=== PATIENT | male | born 1990 | race African-American/Black ===

== ENCOUNTER 2018-09-23 11:03 | Emergency (ER) | payer OTHER ==
[2018-09-23] MEDS ORDERED: BUFFERED LIDOCAINE 10 ML SYRINGE SUBQ STA (12:29)
--- NOTE | 2018-09-23 13:09 | XRAY Report ---
Reason: Pinky finger injury Procedure Date: 09/23/2018 Accession Number: [id number] / [id number] Procedure: XR - Hand 3 View RT CPT Code: FULL RESULT: EXAM: RIGHT HAND RADIOGRAPHY EXAM DATE: 09/23/2018 11:29 AM. CLINICAL HISTORY: Injury COMPARISON: None. TECHNIQUE: 3 views. FINDINGS: Bones: No fracture. No bone lesion. Joints: Normal. No subluxations. Soft Tissues: Fifth digit bandage IMPRESSION: No fracture or dislocation RADIA
--- NOTE | 2018-09-23 13:29 | ED Physician Documentation ---
PD HPI UPPER EXT INJURY - Stated complaint Stated Complaint: INJURED RIGHT PINKY - Chief complaint Chief Complaint: Ext Problem - History obtained from History obtained from: Patient - History of Present Illness Location: Right, Finger Type of injury: Blunt / blow Where injury occurred: Work Timing - onset: Today Timing - details: Abrupt onset Severity Comments: moderate Improved by: Immobilization Worsened by: Moving Associated symptoms: Swelling, Discolored. No: Weakness, Numbness Contributing factors: No: Anticoagulated Similar symptoms before: Has not had sx before Recently seen: Not recently seen Review of Systems Constitutional: denies: Fever, Chills Eyes: denies: Discharge Ears: denies: Drainage/discharge Cardiac: denies: Chest pain / pressure GI: denies: Abdominal Pain Skin: reports: Laceration (s) Musculoskeletal: reports: Extremity pain. denies: Neck pain Neurologic: denies: Generalized weakness PD PAST MEDICAL HISTORY - Past Medical History Past Medical History: No - Past Surgical History Past Surgical History: No - Present Medications Home Medications: Ambulatory Orders Medication Instructions Recorded Confirmed Hydrocodone/Acetaminophen [[place] 1 each PO Q6HR PRN #5 tablet 09/23/18 5-325 Tablet] - Allergies Allergies/Adverse Reactions: Allergies Allergy/AdvReac Type Severity Reaction Status Date / Time No Known Drug Allergies Allergy Verified 09/23/18 11:17 - Social History Does the pt smoke?: No Smoking Status: Never smoker Does the pt drink ETOH?: No Does the pt have substance abuse?: No - Immunizations Immunizations are current?: Yes - POLST Patient has POLST: No PD ED PE NORMAL - General General: Alert and oriented X 3, No acute distress - HEENT HEENT: Atraumatic, PERRL, EOMI, Ears normal - Neuro Neuro: Alert and oriented X 3, Normal speech - Psych Psych: Normal affect PD ED PE EXPANDED - Extremities GENE UE/Hands Visual: 1 - laceration 2 - laceration (The patient has 2 very small lacerations with fat projecting through. The patient has full active range of motion of the finger. There is no evidence of a flexor tendon laceration. There is no foreign body on examination. The patient does have ecchymosis to the finger. The nail is uninjured. The patient has no tenderness in the wrist or proximal hand) Results - Vitals Vitals: Vital Signs - 24 hr 09/23/18 09/23/18 11:11 13:43 Temperature 36.4 C L 36.7 C Heart Rate 68 63 Respiratory 20 14 Rate Blood Pressure 157/82 H 142/83 H O2 Saturation 100 100 Oxygen O2 Source Room air - Rads (name of study) XR hand Radiology: Final report received, See rad report Procedures - Laceration (location) Finger right Length in cm: 1 Wound type: Linear Neurovascular status: Sensory intact, Motor intact, Vascular intact Tendon involvement: Tendon intact, Tendon Injury Anesthesia: Lidocaine 1% Wound Preparation: Betadine, Irrigated copiously NS, To the base. No: FB identified, FB removed Skin layer closure: Nylon, Interrupted, Size #-0 - enter number (4) Other: Patient tolerated well, No complications, Neurovascular intact, Dressing applied, Tetanus UTD Complexity: Simple PD MEDICAL DECISION MAKING - ED course ED course: The patient has a contusion to his finger with small lacerations which were closed. The patient has no evidence of a foreign body or tendon injury. Presently the patient appears appropriate for discharge and ongoing outpatient management. I discussed warning signs for infection and recommended returning for any worsening or any concerns Departure - Departure Disposition: 01 Home, Self Care Clinical Impression: Contusion of little finger Qualifiers: Encounter type: initial encounter Damage to nail status: without damage Laterality: unspecified laterality Qualified Code(s): S60.059A - Contusion of unspecified little finger without damage to nail, initial encounter Finger laceration Qualifiers: Encounter type: initial encounter Finger: little finger Damage to nail status: without damage Foreign body presence: without foreign body Laterality: unspecified laterality Qualified Code(s): S61.218A - Laceration without foreign body of other finger without damage to nail, initial encounter Condition: Good Instructions: ED Contusion Finger, ED Laceration Hand, ED Contusion Hand Follow-Up: [facility] [Provider Group] - Within 1 week (Please have your sutures removed in 7 days) Prescriptions: Hydrocodone/Acetaminophen [B[place]our 5-325 Tablet] 1 each PO Q6HR PRN #5 tablet PRN Reason: Pain Comments: Please return to the emergency department for any worsening or any concerns Discharge Date/Time: 09/23/18 13:51
[2018-09-23] MEDS ORDERED: BACITRACIN OINT TOP ONE (13:35)
[2018-09-23 13:44] VITALS: BP 142/83
== END 2018-09-23 13:51 | disposition home or self-care (01) ==
LOC: ED 11:03
DX: S61.218A Laceration without foreign body of other finger without damage to nail, initial encounter (principal); W22.8XXA Striking against or struck by other objects, initial encounter; Y99.0 Civilian activity done for income or pay
CPT/HCPCS: 12001; 73130; 99283; A9270

== ENCOUNTER 2018-12-28 22:51 | Emergency (ER) | payer OTHER ==
[2018-12-29] MEDS ORDERED: SODIUM CHLORIDE 0.9% 1,000 ML IV ONE (01:02)
[2018-12-29] MEDS ORDERED: IPRATROPIUM/ALBUTEROL 3 ML NEB INH STA (01:02)
[2018-12-29] MEDS ORDERED: KETOROLAC 30 MG/ML VIAL IVP STA (01:02)
[2018-12-29] MEDS ORDERED: DEXAMETHASONE 10 MG/ML VIAL IVP STA (01:03)
[2018-12-29] MEDS ORDERED: cefTRIAXone 1 GM in SODIUM CHLORIDE 0.9% MINIBAG 100 ML IV STA (01:03)
[2018-12-29] MEDS ORDERED: diphenhydrAMINE INJ 50 MG/ML VIAL IVP STA (01:03)
[2018-12-29] MEDS ORDERED: PROCHLORPERAZINE 10 MG/2 ML VIAL IVP STA (01:03)
--- NOTE | 2018-12-29 01:07 | ED Physician Documentation ---
PD HPI HEADACHE - Stated complaint Stated Complaint: COUGH,HEADACHE - Chief complaint Chief Complaint: Neuro - History obtained from History obtained from: Patient - History of Present Illness Timing - onset: How many days ago (2) Timing - onset during: Rest Timing - duration: Days (2) Timing - details: Abrupt onset, Still present Location: Front Quality: Throbbing Associated symptoms: Nausea. No: Fever, Stiff neck, Weakness, Numbness, Syncope, Seizure, Eye pain, Vision changes Improved by: Rest, Dark room, Quiet, Meds Worsened by: Light, Noise, Moving Contributing factors: Recent illness. No: Anticoagulated Similar symptoms before: Diagnosis (migraine) Recently seen: Not recently seen - Additional information Additional information: 28-year-old male with a history of migraine has developed a migraine headache over the past 2 days in addition of this he has developed a cough and congestion and he is coughing up yellow-green phlegm he has sinus tenderness and he has previously used an inhaler when he was younger. Review of Systems Constitutional: denies: Fever Eyes: reports: Photophobia. denies: Decreased vision Ears: denies: Ear pain Nose: reports: Rhinorrhea / runny nose, Congestion Throat: denies: Sore throat Cardiac: denies: Chest pain / pressure, Palpitations Respiratory: reports: Cough. denies: Dyspnea GI: reports: Nausea. denies: Vomiting : denies: Dysuria, Frequency PD PAST MEDICAL HISTORY - Past Medical History Past Medical History: No Cardiovascular: None Respiratory: None Neuro: None Endocrine/Autoimmune: None GI: None : None HEENT: None Psych: None Musculoskeletal: None Derm: None - Past Surgical History Past Surgical History: No - Present Medications Home Medications: Ambulatory Orders Medication Instructions Recorded Confirmed Azithromycin [Zithromax] 250 mg PO DAILY #6 tablet 12/29/18 - Allergies Allergies/Adverse Reactions: Allergies Allergy/AdvReac Type Severity Reaction Status Date / Time No Known Drug Allergies Allergy Verified 12/28/18 22:57 - Social History Does the pt smoke?: No Smoking Status: Never smoker Does the pt drink ETOH?: Yes Does the pt have substance abuse?: No - Immunizations Immunizations are current?: Yes - POLST Patient has POLST: No PD ED PE NORMAL - Vitals Vital signs reviewed: Yes - General General: Alert and oriented X 3, Well developed/nourished, Other (appears to be in pain and photophobic) - HEENT HEENT: Atraumatic, PERRL, EOMI, Other (both TM's are inflamed with indistinct landmarks. The pharynx is with circumferential erythema ) - Neck Neck: Supple, no meningeal sign, No bony TTP - Cardiac Cardiac: RRR, No murmur - Respiratory Respiratory: No respiratory distress, Other (diminsihed but clear breath sounds. 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, No motor deficit, No sensory deficit, Normal speech Eye Opening: Spontaneous Motor: Obeys Commands Verbal: Oriented GCS Score: 15 - Psych Psych: Normal mood, Normal affect Results - Vitals Vitals: Vital Signs - 24 hr 12/28/18 12/29/18 22:55 01:08 Temperature 36.9 C Heart Rate 89 72 Respiratory 16 16 Rate Blood Pressure 146/90 H O2 Saturation 97 Oxygen O2 Source Room air PD MEDICAL DECISION MAKING - ED course Complexity details: reviewed results, re-evaluated patient, considered differential, d/w patient ED course: 28-year-old male with a migraine headache and a cough appears to have sinusitis and otitis on exam and he does have some reduced airway movement. He is administered a migraine rescue consisting of Compazine, Benadryl, Toradol, Decadron and saline. In addition he is administered Rocephin IV for OM and sinusitis. We will put him on a course of antibiotic and he is given a duo neb treatment here. Departure - Departure Disposition: 01 Home, Self Care Clinical Impression: Migraine Qualifiers: Migraine type: without aura Status migrainosus presence: without status migrainosus Intractability: not intractable Qualified Code(s): G43.009 - Yasir afia without aura, not intractable, without status migrainosus Otitis media Qualifiers: Otitis media type: suppurative Chronicity: acute Laterality: bilateral Recurrence: non-recurrent Spontaneous tympanic membrane rupture: without spontaneous rupture Qualified Code(s): H66.003 - Acute suppurative otitis media without spontaneous rupture of ear drum, bilateral Condition: Stable Instructions: ED Headache Migraine, ED Otitis Media Acute Adult Follow-Up: [facility] [Provider Group] Prescriptions: Azithromycin [Zithromax] 250 mg PO DAILY #6 tablet
[2018-12-29 02:46] VITALS: BP 124/68
== END 2018-12-29 02:47 | disposition home or self-care (01) ==
LOC: ED 22:51
DX: G43.009 Migraine without aura, not intractable, without status migrainosus (principal); H66.003 Acute suppurative otitis media without spontaneous rupture of ear drum, bilateral
CPT/HCPCS: 94640; 96361; 96365; 96375; 99284; J1200

== ENCOUNTER 2019-03-31 10:49 | Emergency (ER) | payer OTHER ==
[2019-03-31] MEDS ORDERED: PROCHLORPERAZINE 10 MG/2 ML VIAL IVP STA (12:15)
[2019-03-31] MEDS ORDERED: SODIUM CHLORIDE 0.9% 1,000 ML IV ONE (12:15)
[2019-03-31] MEDS ORDERED: DEXAMETHASONE 10 MG/ML VIAL IVP STA (12:16)
[2019-03-31] MEDS ORDERED: diphenhydrAMINE INJ 50 MG/ML VIAL IVP STA (12:16)
[2019-03-31] MEDS ORDERED: KETOROLAC 30 MG/ML VIAL IVP STA (12:16)
--- NOTE | 2019-03-31 13:08 | ED Physician Documentation ---
PD HPI HEADACHE - Stated complaint Stated Complaint: PRITCHETT - Chief complaint Chief Complaint: Neuro - History obtained from History obtained from: Patient - History of Present Illness Timing - onset: How many days ago (2) Timing - duration: Days (2) Timing - details: Still present Worst headache ever?: Worst headache ever? (No) Location: Front Associated symptoms: Nausea Worsened by: Light, Noise, Moving Similar symptoms before: Diagnosis (Migraines) Recently seen: Clinic - Treatment prior to arrival Treatment prior to arrival: Naprosyn, without relief. - Additional information Additional information: The patient is a 28-year-old active [employer] [place] male who presents with "migraine headache." The pain is located mostly in the frontal region of the head. It started 2 days ago and has persisted since that time despite using Naprosyn. He reports associated photosensitivity and nausea. He denies vomiting or fever. He has history of similar symptoms in the past. The last time it was this bad was about 3 months ago. Review of Systems Constitutional: denies: Fever Eyes: reports: Photophobia Ears: denies: Tinnitus/ringing Nose: denies: Congestion Throat: denies: Sore throat Cardiac: denies: Chest pain / pressure Respiratory: denies: Dyspnea, Cough GI: reports: Nausea. denies: Abdominal Pain, Vomiting : denies: Dysuria Skin: denies: Rash Musculoskeletal: denies: Neck pain, Back pain Neurologic: reports: Headache. denies: Focal weakness, Numbness, Head injury PD PAST MEDICAL HISTORY - Past Medical History Cardiovascular: None Respiratory: None Neuro: Migraines Endocrine/Autoimmune: None GI: None : None HEENT: None Psych: None Musculoskeletal: None Derm: None - Past Surgical History Past Surgical History: No - Present Medications Home Medications: Ambulatory Orders Medication Instructions Recorded Confirmed Azithromycin [Zithromax] 250 mg PO DAILY #6 tablet 12/29/18 Promethazine [Phenergan] 25 mg PO Q6H PRN #10 tab 03/31/19 - Allergies Allergies/Adverse Reactions: Allergies Allergy/AdvReac Type Severity Reaction Status Date / Time No Known Drug Allergies Allergy Verified 03/31/19 10:59 - Social History Does the pt smoke?: No Smoking Status: Never smoker Does the pt drink ETOH?: Yes Does the pt have substance abuse?: No - Immunizations Immunizations are current?: Yes - POLST Patient has POLST: No PD ED PE NORMAL - Vitals Vital signs reviewed: Yes (Hypertensive) - General General: Alert and oriented X 3, Well developed/nourished - HEENT HEENT: Atraumatic, PERRL, EOMI, Ears normal, Pharynx benign, Other (Fundi with normal vasculature, without papilledema.) - Neck Neck: Supple, no meningeal sign, No adenopathy - Cardiac Cardiac: RRR - Respiratory Respiratory: No respiratory distress, Clear bilaterally - Abdomen Abdomen: Soft, Non tender - Back Back: No CVA TTP - Derm Derm: No rash - Extremities Extremities: No edema, No calf tenderness / cord - Neuro Neuro: Alert and oriented X 3, No motor deficit, No sensory deficit, Normal speech Results - Vitals Vitals: Oxygen O2 Source Room air PD MEDICAL DECISION MAKING - ED course Complexity details: reviewed old records, re-evaluated patient, considered differential, d/w patient ED course: The patient's presentation is most consistent with cephalgia consistent with migraine headache. His presentation does not suggest meningitis, intracranial hemorrhage, trigeminal neuralgia, or pseudotumor cerebri. Treatment in the emergency department included administration of normal saline 1P, Compazine 10 mg IV, diphenhydramine 25 mg IV, ketorolac 30 mg IV, and dexamethasone 10 mg IV. The patient's headache resolved with the above treatment. He is being discharged with prescription for Phenergan. I discussed with him symptomatic treatment, outpatient follow-up, as well as potentially worrisome signs or symptoms that should prompt reevaluation in the emergency department. Departure - Departure Disposition: 01 Home, Self Care Clinical Impression: Cephalgia Qualifiers: Headache type: unspecified Headache chronicity pattern: acute headache Intractability: not intractable Qualified Code(s): R51 - Headache Condition: Stable Instructions: ED Cephalgia Unspecified Follow-Up: [facility] [Provider Group] Prescriptions: Promethazine [Phenergan] 25 mg PO Q6H PRN #10 tab PRN Reason: Nausea / Vomiting Comments: Drink plenty of fluids. You can use ibuprofen, up to 800 mg 3 times daily if needed for recurrent headache. You can use Phenergan as prescribed as needed for nausea. Follow-up with your primary physician within 2 weeks. Call to schedule an appointment. Return to the emergency department if you develop increasing headache, persistent vomiting, or otherwise worsening symptoms. Forms: Activity restrictions Discharge Date/Time: 03/31/19 13:18
[2019-03-31 13:27] VITALS: BP 154/87
== END 2019-03-31 13:18 | disposition home or self-care (01) ==
LOC: ED 10:49
DX: R51 Headache (principal); R11.0 Nausea
CPT/HCPCS: 96374; 96375; 99284; 99285; J1200